=== PATIENT | male | born 1930 | race Caucasian/White ===

== ENCOUNTER 2017-07-07 18:37 | Observation (INO) ==
[~2017-07-07 18:37] MED LIST: Piperacillin/Tazobactam 3.375 GM in D5% in Water (Mini-Bag+) 100 ML IVPB ONE
[2017-07-07] MEDS ORDERED: 0.9 % Sodium Chloride 500 ML IVC ONE (18:45)
--- NOTE | 2017-07-07 18:50 | Emergency Department Note ---
Disposition Clinical Impression: Pneumonia Qualifiers: Pneumonia type: aspiration pneumonia Aspiration pneumonia type: unspecified Laterality: right Lung location: lower lobe of lung Qualified Code(s): J69.0 - Pneumonitis due to inhalation of food and vomit Sinusitis Qualifiers: Sinusitis location: unspecified location Chronicity: unspecified Qualified Code (s): J32.9 - Chronic sinusitis, unspecified Disposition: Admitted As Inpatient Condition: Good Referrals: NONE,PCP [Non-Partnered Physician] - Forms: ED Satisfaction Letter Time of Disposition: 20:24 Fever HPI - General Chief Complaint: ED Fever Stated Complaint: altered mental status - History of Present Illness HPI Narrative: Patient presents to the emergency department for evaluation of fever and generalized weakness. Patient's spouse state that over the past 48 hours the patient has had increasing generalized weakness with subjective fever. He has had no specific complaints other than he has become more weak. He denies headache visual changes confusion or speech changes. He is alert and oriented 3 on my exam. He denies chest pain or dyspnea but does admit to cough. Denies abdominal pain nausea vomiting or diarrhea. He does report a decreased appetite. Denies change in urination. Denies neck or back pain. No recent antibiotic use or known sick contacts. - Related Data Home Medications Medication Instructions Recorded Confirmed Losartan/HCTZ [Hyzaar 50-12.5 1 each PO DAILY 07/07/17 07/07/17 Tablet] Nitroglycerin [Nitrostat] 0.4 mg SL PRN PRN 07/07/17 07/07/17 Simvastatin [Zocor] 40 mg PO HS 07/07/17 07/07/17 Warfarin [Coumadin] 5 mg PO 1800 07/07/17 07/07/17 amLODIPine [Norvasc] 5 mg PO HS 07/07/17 07/07/17 Allergies Allergy/AdvReac Type Severity Reaction Status Date / Time No Known Allergies Allergy Verified 12/16/15 14:36 Constitutional: Reports: fever, weakness Eyes: Denies: eye pain, eye discharge, vision change ENT ED: Denies: ear pain, dysphagia Cardiovascular: Denies: chest pain, palpitations Respiratory: Reports: cough, sputum production (White to yellow). Denies: dyspnea, wheezes, hemoptysis Gastrointestinal: Denies: abdominal pain, vomiting, diarrhea, melena, hematochezia Genitourinary: Denies: urgency, dysuria, frequency Musculoskeletal: Denies: back pain, neck pain, joint swelling Integumentary: Denies: rash Neurological: Denies: headache, weakness, numbness, paresthesias, confusion Hematological/Lymphatic: Denies: lymphadenopathy Allergic/Immunologic: Denies: facial swelling, itchy eyes Fever PMH - Past Medical History Medical history: Reports: hypertension Surgical history: Reports: non-contributory Psychiatric history: Reports: no psych history - Social History Smoking Status: Former smoker Alcohol use: Reports: none Drug use: Reports: none Physical Exam - General Limitations: no limitations General appearance: alert, in no apparent distress (Patient resting comfortably cooperative and interactive and quite pleasant) - Head Head exam: atraumatic, normocephalic, normal inspection - Eye Eye exam: Present: normal appearance, PERRL, EOMI - ENT ENT exam: mucous membranes dry, TM's normal bilaterally - Neck Neck exam: Present: normal inspection, full ROM. Absent: meningismus - Respiratory Respiratory exam: Present: other (Rhonchi bibasilar). Absent: respiratory distress, accessory muscle use, prolonged expiratory phase - Cardiovascular Cardiovascular exam: Present: regular rate, normal rhythm, normal heart sounds - Abdominal Exam Abdominal exam: Present: soft, Non-Tender, normal bowel sounds. Absent: tenderness, distention, guarding, rebound, rigidity - Extremities Exam Extremities exam: Present: normal inspection, full ROM. Absent: tenderness, pedal edema, joint swelling, calf tenderness - Expanded Lower Extremity Exam Neurovascular/Tendon exam: Present: normal capillary refill. Absent: pulse deficit - Back Exam Back exam: Absent: tenderness, CVA tenderness (R), CVA tenderness (L) - Neurological Exam Neurological exam: Present: alert, oriented X3, CN II-XII intact - Psychiatric Psychiatric exam: Present: normal affect, normal mood - Skin Skin exam: Present: warm, dry, intact, normal color Course Vital Signs Temperature 101.9 F H 07/07/17 18:39 Pulse Rate 89 07/07/17 18:39 Respiratory Rate 18 07/07/17 18:39 Blood Pressure 165/85 07/07/17 18:39 O2 Sat by Pulse Oximetry 95 07/07/17 18:39 Temperature 101.9 F H 07/07/17 18:44 Pulse Rate 76 07/07/17 19:57 Respiratory Rate 18 07/07/17 19:57 Blood Pressure 126/92 07/07/17 19:57 O2 Sat by Pulse Oximetry 96 07/07/17 19:57 Oxygen Delivery Oxygen Delivery Nasal Cannula Fever - MDM Narrative Medical decision making narrative: 2020: Discuss the case with Dr. Lema, patient will be admitted to this facility for ongoing evaluation and treatment. Of note clinically there is no evidence of meningitis, encephalitis or mastoiditis - Lab Data Lab results reviewed: Yes I reviewed the patient's lab results. Result diagrams: 07/07/17 19:01 07/07/17 19:01 Lab Results 07/07/17 07/07/17 07/07/17 Range/Units 19:01 19:01 19:01 WBC 9.3 (4.3-11.1) K/mcL RBC 4.08 L (4.19-5.50) M/mcL Hgb 11.4 L (12.9-16.9) g/dL Hct 34.1 L (37.5-50.1) % MCV 83.6 (83.0-100.0) fL MCH 27.9 L (28.0-33.3) pg MCHC 33.4 (31.6-35.5) g/dL RDW 14.6 H (11.5-14.5) % Plt Count 163 (140-400) K/mcL MPV 8.7 L (9.4-12.4) fL Immature Gran % 0.4 (0-4) % Seg Neutrophils % 83.7 % Lymphocytes % 7.8 % Monocytes % 5.3 % Eosinophils % 2.7 % Basophils % 0.1 % Neutrophils # 7.8 (1.6-8.9) K/mcL Lymphocytes # 0.7 (0.6-4.6) K/mcL Monocytes # 0.5 (0.0-1.3) K/mcL Eosinophils # 0.3 (0.0-0.6) K/mcL Basophils # 0.0 (0.0-0.2) K/mcL PT 20.6 H (9.4-12.1) Seconds INR 1.9 APTT 28.8 (26.0-36.0) Seconds VBG Lactic Acid (0.5-2.2) mmol/L Sodium (136-145) mEq/L Potassium (3.5-4.5) mEq/L Chloride (98-109) mEq/L Carbon Dioxide (19-29) mEq/L BUN (8-26) mg/dL Creatinine (0.72-1.25) mg/dL Est GFR ( Amer) (> 60) Est GFR (Non-Af Amer) (> 60) BUN/Creatinine Ratio (6-26) Glucose (70-99) mg/dL Calculated Osmolality (280-300) Calcium (8.6-10.8) mg/dL Total Bilirubin 0.9 (0.2-1.2) mg/dL Direct Bilirubin 0.5 (0.0-0.5) mg/dL Indirect Bilirubin 0.4 (0.0-1.2) mg/dL AST 60 H (5-34) Units/L ALT 36 (0-55) Units/L Alkaline Phosphatase 72 (38-126) Units/L Troponin I (0-0.03) ng/mL Serum Total Protein 6.3 (6.0-8.3) g/dL Albumin 2.9 L (3.5-5.0) g/dL Globulin 3.4 (2.4-3.5) g/dL Albumin/Globulin Ratio 0.9 L (1.1-2.2) Lipase 76 (8-78) Units/L 07/07/17 07/07/17 07/07/17 Range/Units 19:01 19:01 19:01 WBC (4.3-11.1) K/mcL RBC (4.19-5.50) M/mcL Hgb (12.9-16.9) g/dL Hct (37.5-50.1) % MCV (83.0-100.0) fL MCH (28.0-33.3) pg MCHC (31.6-35.5) g/dL RDW (11.5-14.5) % Plt Count (140-400) K/mcL MPV (9.4-12.4) fL Immature Gran % (0-4) % Seg Neutrophils % % Lymphocytes % % Monocytes % % Eosinophils % % Basophils % % Neutrophils # (1.6-8.9) K/mcL Lymphocytes # (0.6-4.6) K/mcL Monocytes # (0.0-1.3) K/mcL Eosinophils # (0.0-0.6) K/mcL Basophils # (0.0-0.2) K/mcL PT (9.4-12.1) Seconds INR APTT (26.0-36.0) Seconds VBG Lactic Acid 1.0 (0.5-2.2) mmol/L Sodium 135 L (136-145) mEq/L Potassium 3.8 (3.5-4.5) mEq/L Chloride 101 (98-109) mEq/L Carbon Dioxide 23 (19-29) mEq/L BUN 16 (8-26) mg/dL Creatinine 0.85 (0.72-1.25) mg/dL Est GFR ( Amer) > 60 (> 60) Est GFR (Non-Af Amer) > 60 (> 60) BUN/Creatinine Ratio 19 (6-26) Glucose 109 H (70-99) mg/dL Calculated Osmolality 282 (280-300) Calcium 8.1 L (8.6-10.8) mg/dL Total Bilirubin (0.2-1.2) mg/dL Direct Bilirubin (0.0-0.5) mg/dL Indirect Bilirubin (0.0-1.2) mg/dL AST (5-34) Units/L ALT (0-55) Units/L Alkaline Phosphatase (38-126) Units/L Troponin I 0.03 (0-0.03) ng/mL Serum Total Protein (6.0-8.3) g/dL Albumin (3.5-5.0) g/dL Globulin (2.4-3.5) g/dL Albumin/Globulin Ratio (1.1-2.2) Lipase (8-78) Units/L ITS Impressions Chest X-Ray 07/07/17 18:46 IMPRESSION: Possible right lower lobe pneumonia D/ / iDo Conway MD / Dio Conway MD Interpreting Provider: Dio Conway MD Head CT 07/07/17 18:46 IMPRESSION: No acute intracranial abnormality. Evidence of bilateral otomastoiditis, new when compared to the previous exam. Paranasal sinus disease, increased when compared to previous exam. D/ / Jared Vigil MD / Jared Vigil MD Interpreting Provider: Jared Vigil MD - Radiology Data Radiology results reviewed: Yes I reviewed the patient's radiology results. - EKG Data EKG attestation: Yes I reviewed and interpreted this EKG. EKG shows normal: sinus rhythm (Normal sinus rhythm at a rate of 89. Intraventricular conduction delay. Nonspecific changes without evidence of acute ST segment or T-wave change.)
[2017-07-07] MEDS ORDERED: Piperacillin/Tazobactam 3.375 GM in D5% in Water (Mini-Bag+) 100 ML IVPB ONE (18:52)
[2017-07-07 19:09] LABS: Basophils % 0.1 %; Eosinophils # 0.3 K/mcL (0.0-0.6); Eosinophils % 2.7 %; Hematocrit 34.1 % (37.5-50.1); Hemoglobin 11.4 g/dL (12.9-16.9); Immature Granulocytes % 0.4 % (0-4); Lymphocytes # 0.7 K/mcL (0.6-4.6); Lymphocytes % 7.8 %; Mean Corpuscular HGB Conc 33.4 g/dL (31.6-35.5); Mean Corpuscular Hemoglobin 27.9 pg (28.0-33.3); Mean Corpuscular Volume 83.6 fL (83.0-100.0); Mean Platelet Volume 8.7 fL (9.4-12.4); Monocytes # 0.5 K/mcL (0.0-1.3); Monocytes % 5.3 %; Neutrophils # 7.8 K/mcL (1.6-8.9); Platelet Count 163 K/mcL (140-400); Red Blood Count 4.08 M/mcL (4.19-5.50); Red Cell Distribution Width 14.6 % (11.5-14.5); Segmented Neutrophils % 83.7 %
[2017-07-07 19:15] LABS: INR 1.9; Prothrombin Time 20.6 Seconds (9.4-12.1)
[2017-07-07 19:18] LABS: Activated Partial Thrombo Time 28.8 Seconds (26.0-36.0)
[2017-07-07 19:25] LABS: BUN/Creatinine Ratio 19 (6-26); Blood Urea Nitrogen 16 mg/dL (8-26); Calcium 8.1 mg/dL (8.6-10.8); Carbon Dioxide 23 mEq/L (19-29); Chloride 101 mEq/L (98-109); Glucose 109 mg/dL (70-99); Osmolality,Calculated 282 (280-300); Potassium 3.8 mEq/L (3.5-4.5); Sodium 135 mEq/L (136-145); eGFR For African Americans > 60 (> 60); eGFR For Non-African Americans > 60 (> 60)
[2017-07-07 19:28] LABS: Albumin 2.9 g/dL (3.5-5.0); Albumin/Globulin Ratio 0.9 (1.1-2.2); Bilirubin,Direct 0.5 mg/dL (0.0-0.5); Bilirubin,Indirect 0.4 mg/dL (0.0-1.2); Bilirubin,Total 0.9 mg/dL (0.2-1.2); Globulin 3.4 g/dL (2.4-3.5); Total Protein 6.3 g/dL (6.0-8.3)
[2017-07-07] MEDS ORDERED: Naloxone 0.4 MG/ML INJ IVP PRN (20:25)
[2017-07-07 20:40] LABS: Bilirubin,Urine Negative (Negative); Blood,Urine Moderate (Negative); Clarity,Urine Clear (Clear); Color,Urine Yellow (Yellow); Glucose,Urine (UA) Normal (Normal); Ketones,Urine Trace mg/dL (Negative); Leukocyte Esterase,Urine Negative (Negative); Nitrite,Urine Negative (Negative); Protein,Urine 100 mg/dL (Neg-Trace); Urobilinogen,Urine Normal (Normal)
[2017-07-07 21:04] LABS: Granular Casts,Urine Few per lpf (None Seen); Mucus,Urine Moderate (Few); RBC,Urine 30-50 per hpf (0-3); Squamous Epithelial Cell,Urine Few per lpf (None-Few); WBC,Urine 0-3 per hpf (0-3)
[2017-07-08] MEDS: Piperacillin/Tazobactam 3.375 GM in D5% in Water (Mini-Bag+) 100 ML IVPB SCH ×3 (02:24→18:21)
[2017-07-08] MEDS: amLODIPine 5 MG TABLET PO SCH ×2 (03:35→20:01)
[2017-07-08 04:39] LABS: Hematocrit 32.9 % (37.5-50.1); Hemoglobin 10.9 g/dL (12.9-16.9); Immature Granulocytes % 0.4 % (0-4); Lymphocytes % 8.1 %; Mean Corpuscular HGB Conc 33.1 g/dL (31.6-35.5); Mean Corpuscular Hemoglobin 27.7 pg (28.0-33.3); Mean Corpuscular Volume 83.7 fL (83.0-100.0); Mean Platelet Volume 9.3 fL (9.4-12.4); Monocytes % 5.2 %; Platelet Count 148 K/mcL (140-400); Red Blood Count 3.93 M/mcL (4.19-5.50); Red Cell Distribution Width 14.6 % (11.5-14.5); Segmented Neutrophils % 76.7 %
[2017-07-08 04:40] LABS: Basophils % 0.2 %; Eosinophils # 0.8 K/mcL (0.0-0.6); Eosinophils % 9.4 %; Lymphocytes # 0.7 K/mcL (0.6-4.6); Monocytes # 0.4 K/mcL (0.0-1.3); Neutrophils # 6.5 K/mcL (1.6-8.9)
[2017-07-08 04:54] LABS: BUN/Creatinine Ratio 19 (6-26); Blood Urea Nitrogen 17 mg/dL (8-26); Calcium 8.3 mg/dL (8.6-10.8); Carbon Dioxide 24 mEq/L (19-29); Chloride 102 mEq/L (98-109); Glucose 116 mg/dL (70-99); Osmolality,Calculated 287 (280-300); Potassium 3.6 mEq/L (3.5-4.5); Sodium 137 mEq/L (136-145); eGFR For African Americans > 60 (> 60); eGFR For Non-African Americans > 60 (> 60)
[2017-07-08] MEDS: Losartan/HCTZ 50-12.5 TABLET PO SCH (08:11)
[2017-07-08 13:44] LABS: % Iron Saturation 8 % (20-55); Iron 18 mcg/dL (65-175); Transferrin 166 mg/dL (174-364)
[2017-07-08 14:05] LABS: Ferritin 1408 ng/ml (22-275)
[2017-07-08 14:18] LABS: Folate 15.9 ng/mL (7.0-31.4)
--- NOTE | 2017-07-08 14:53 | Internal Med History&Physical ---
Date of Encounter: 07/08/17 Time of Encounter: 08:50 Assessment and Plan (1) Pneumonia Current visit: Yes Status: Acute Qualifiers: Pneumonia type: due to unspecified organism Laterality: right Lung location: lower lobe of lung Qualified Code(s): J18.1 - Lobar pneumonia, unspecified organism (2) Hypertension Current visit: Yes Status: Chronic Continue Norvasc and Hyzaar. Qualifiers: Hypertension type: essential hypertension Qualified Code(s): I10 - Essential (primary) hypertension (3) Anemia Current visit: Yes Status: Acute We will order anemia testing. Qualifiers: Anemia type: unspecified type Qualified Code(s): D64.9 - Anemia, unspecified (4) Hematuria Current visit: Yes Status: Acute Microscopic. Will do chest, abdomen, and pelvic CT. Qualifiers: Hematuria type: unspecified type Qualified Code(s): R31.9 - Hematuria, unspecified Internal Medicine - H&P: HPI Chief complaint: Dyspnea and fever Admitted From: Home Plans for Post Hospital Care: Home History of present illness: Mr. Puckett is a 87 year old male who came to the hospital stating he had increasing dyspnea and fever over the preceding 2-3 days. He had slight cough with minimal productivity. He was evaluated in emergency room and felt to have possible right lower lobe pneumonia. He was admitted to [facility] floor for ongoing care needs. He states he feels slightly improved at the present time. His respiratory history is significant for having smoked from age [age]. He does not have known chronic lung disease and does not use home oxygen. He has not been tested for sleep apnea. Past Med Surg Social Fam HX - Past Medical History Medical history: coronary artery disease, hyperlipidemia, hypertension Psychiatric history: no psych history - Past Surgical History Surgical History: non-contributory - Social History Smoking Status: Former smoker Smokeless Tobacco Status: No Alcohol use: none Drug use: none Internal Medicine - H&P: Meds Losartan/HCTZ [Hyzaar 50-12.5 Tablet] 1 each PO DAILY 07/07/17 [History] Nitroglycerin [Nitrostat] 0.4 mg SL PRN PRN 07/07/17 [History] Simvastatin [Zocor] 40 mg PO HS 07/07/17 [History] Warfarin [Coumadin] 5 mg PO 1800 07/07/17 [History] amLODIPine [Norvasc] 5 mg PO HS 07/07/17 [History] 3 Allergy/AdvReac Type Severity Reaction Status Date / Time No Known Allergies Allergy Verified 07/07/17 22:50 All Systems PM: A 10-system review of systems was performed and is negative for pertinent findings except as documented above in the HPI. Review of systems: Gen.: His weight has been stable in the past few months Cardiovascular: He has history of hypertension and known ASHD status post [place] 2006. He had a stent placed post [place]. His most recent stress test was July 2016 which showed fixed perfusion defect of the inferior wall that worsens during stress most consistent with artifact. There was no EKG evidence of ischemia. The estimated EF was 57%. Echocardiogram 08/04/2016 showed LVEF 65% with increased thickness of the interventricular septum and posterior wall at 1.30 cm each. The E/A ratio was 0.7. No significant valvular adenopathy was seen. He has not had DVT or pulmonary embolus and does not get angina or anginal equivalents on exertion. Respiratory: As per history of present illness GI: Denies disorders of his liver gallbladder or exocrine pancreas : No history of hematuria dysuria or kidney stones Neurologic: No history of strokes or seizures Endocrine: He denies diabetes thyroid disease or hyperlipidemia Hematology/oncology: He had prostate CA approximately 2009 and had XRT. He denies other internal malignancies or blood disorders Psychiatric: He denies anxiety depression or other mental health issues Musk skeletal: He has minimal DJD but no known gout or osteoporosis. - Constitutional Vitals: Temp Pulse Resp BP Pulse Ox 98.2 F 73 18 159/75 96 07/08/17 11:10 07/08/17 11:10 07/08/17 11:10 07/08/17 11:10 07/08/17 11:10 Exam: Gen.: He is a well-developed well-nourished male who appears in no acute distress HEENT: Head is atraumatic and normocephalic. Eyes: EOMI. There is no scleral icterus. Mouth: Mucosa is moist. Neck: Supple and nontender. There is no thyromegaly or adenopathy noted. Heart: Regular without murmurs gallops or ectopics Lungs: No wheezes or crackles are heard. Abdomen: Soft and nontender. No masses or guarding noted. Extremities: There is no cyanosis edema or clubbing noted. Dorsalis pedis and posterior tibial pulses are trace palpable bilaterally. His feet are warm to touch. Neurologic: Mental status: He is talkative and a good historian. Cranial nerves : Smile is symmetric. Forehead wrinkles bilaterally. Tongue protrudes midline. EOMI. Motor: There is no pronator drift. He is hard of hearing. Cerebellar: Finger to nose is intact bilaterally. Skin: Warm and dry Internal Med - H&P Results - Labs CBC & Chem 7: 07/08/17 04:25 07/08/17 04:25 Labs: Short CBC 07/08/17 Range/Units 04:25 WBC 8.4 (4.3-11.1) K/mcL Hgb 10.9 L (12.9-16.9) g/dL Hct 32.9 L (37.5-50.1) % Plt Count 148 (140-400) K/mcL Neutrophils # 6.5 (1.6-8.9) K/mcL BMP 07/08/17 04:25 Sodium 137 Potassium 3.6 Chloride 102 Carbon Dioxide 24 BUN 17 Creatinine 0.90 Glucose 116 H Calcium 8.3 L - Impressions ITS Impressions Abdomen/Pelvis CT 07/08/17 09:09 IMPRESSION: 1. Peribronchial thickening and airspace opacity in the left lower lobe could be due to bronchiolitis with atelectasis and/or pneumonia. 2. 10 mm nodule in the left upper lobe is stable since 12/16/2015 (19 months). See follow-up guidelines below. 3. No acute abnormality within the abdomen and pelvis. 4. Small left inguinal hernia containing a short segment of colon without evidence of obstruction. 5. Probable fatty infiltration of the liver. 6. 3.4 cm infrarenal abdominal aortic aneurysm. See follow-up guidelines below. RECOMMENDATIONS: Fleischner Society guidelines for follow-up and management of incidentally detected pulmonary nodules: Single Solid Nodule: Nodule size greater than 8 mm In a low-risk patient, consider CT, PET/CT, or tissue sampling at 3 months. In a high-risk patient, consider CT, PET/CT, or tissue sampling at 3 months. - Low risk patients include individuals with minimal or absent history of smoking and other known risk factors. - High risk patients include individuals with a history or smoking or known risk factors. Radiology 2017 http://pubs.rsna.org/doi/full/10.1148/radiol.7388073696 Managing Abdominal Aortic Aneurysms 2.6-2.9 cm: Every 5 years* 3.0-3.4 cm: Every 3 years. 3.5-3.9 cm: Every 1 year. 4.0-4.4 cm: Every 1 year. Recommend vascular consultation. 4.5-5.4 cm: Every 6 months. Recommend vascular consultation. Greater than or equal to 5.5 cm: Referral to vascular surgeon. *For abdominal aortas with maximum diameter of 2.6-2.9 cm meeting criteria for AAA (>50% of proximal normal segment). Reference: J Vasc Surg. 2009 Jul;50(4 Suppl):S2-49 D/ / Marcio Espinosa MD / Marcio Espinosa MD Interpreting Provider: Marcio Espinosa MD Chest CT 07/08/17 09:09 IMPRESSION: 1. Peribronchial thickening and airspace opacity in the left lower lobe could be due to bronchiolitis with atelectasis and/or pneumonia. 2. 10 mm nodule in the left upper lobe is stable since 12/16/2015 (19 months). See follow-up guidelines below. 3. No acute abnormality within the abdomen and pelvis. 4. Small left inguinal hernia containing a short segment of colon without evidence of obstruction. 5. Probable fatty infiltration of the liver. 6. 3.4 cm infrarenal abdominal aortic aneurysm. See follow-up guidelines below. RECOMMENDATIONS: Fleischner Society guidelines for follow-up and management of incidentally detected pulmonary nodules: Single Solid Nodule: Nodule size greater than 8 mm In a low-risk patient, consider CT, PET/CT, or tissue sampling at 3 months. In a high-risk patient, consider CT, PET/CT, or tissue sampling at 3 months. - Low risk patients include individuals with minimal or absent history of smoking and other known risk factors. - High risk patients include individuals with a history or smoking or known risk factors. Radiology 2017 http://pubs.rsna.org/doi/full/10.1148/radiol.5219196020 Managing Abdominal Aortic Aneurysms 2.6-2.9 cm: Every 5 years* 3.0-3.4 cm: Every 3 years. 3.5-3.9 cm: Every 1 year. 4.0-4.4 cm: Every 1 year. Recommend vascular consultation. 4.5-5.4 cm: Every 6 months. Recommend vascular consultation. Greater than or equal to 5.5 cm: Referral to vascular surgeon. *For abdominal aortas with maximum diameter of 2.6-2.9 cm meeting criteria for AAA (>50% of proximal normal segment). Reference: J Vasc Surg. 2008;50(4 Suppl):S2-49 D/ / Marcio Espinosa MD / Marcio Espinosa MD Interpreting Provider: Marcio Espinosa MD
[2017-07-08] MEDS ORDERED: *HR* Warfarin 5 MG TABLET PO SCH (18:00)
[2017-07-09] MEDS: Piperacillin/Tazobactam 3.375 GM in D5% in Water (Mini-Bag+) 100 ML IVPB SCH (04:10)
[2017-07-09 06:37] LABS: INR 1.7; Prothrombin Time 18.3 Seconds (9.4-12.1)
[2017-07-09 07:04] VITALS: BP 130/70
[2017-07-09] MEDS: Losartan/HCTZ 50-12.5 TABLET PO SCH (08:42)
--- NOTE | 2017-07-09 09:18 | Discharge Summary ---
Date of Encounter: 07/09/17 Time of Encounter: 09:05 - Discharge Diagnosis (1) Pneumonia Priority: Primary Status: Acute Qualifiers: Pneumonia type: due to unspecified organism Laterality: right Lung location: lower lobe of lung Qualified Code(s): J18.1 - Lobar pneumonia, unspecified organism (2) Hypertension Priority: Secondary Status: Chronic Qualifiers: Hypertension type: essential hypertension Qualified Code(s): I10 - Essential (primary) hypertension (3) Anemia Priority: Secondary Status: Acute Qualifiers: Anemia type: unspecified type Qualified Code(s): D64.9 - Anemia, unspecified (4) Hematuria Priority: Secondary Status: Acute Qualifiers: Hematuria type: unspecified type Qualified Code(s): R31.9 - Hematuria, unspecified - Discharge Medications Prescriptions: Amoxicillin/Clavulanate [Augmentin] 875 mg PO BIDWM #10 tablet Lactobacillus [Culturelle] 1 each PO BID #10 cap.sprink Home Medications: Losartan/HCTZ [Hyzaar 50-12.5 Tablet] 1 each PO DAILY 07/07/17 [History] Nitroglycerin [Nitrostat] 0.4 mg SL PRN PRN 07/07/17 [History] Simvastatin [Zocor] 40 mg PO HS 07/07/17 [History] Warfarin [Coumadin] 5 mg PO 1800 07/07/17 [History] amLODIPine [Norvasc] 5 mg PO HS 07/07/17 [History] Amoxicillin/Clavulanate [Augmentin] 875 mg PO BIDWM #10 tablet 07/09/17 [Rx] Lactobacillus [Culturelle] 1 each PO BID #10 cap.sprink 07/09/17 [Rx] Allergies/Adverse Reactions: 3 Allergy/AdvReac Type Severity Reaction Status Date / Time No Known Allergies Allergy Verified 07/07/17 22:50 Procedures/tests Complete & Pending: Procedures Performed prior 72 hours Category Date Time Status CT abd pelvis wo no iv no oral [CT] Routine Cat Scan 07/08/17 09:[address] chest wo con [CT] Routine Cat Scan 07/08/17 09:09 Completed Date of admission: 07/07/17 20:40 Primary care physician: Valdemar Paez DO Consults: 07/07/17 23:10 Consult to Contact Person [CONS] Routine Reason for SW Consult: eval. for home health needs; is primary caregiver - Patient Status Disposition: Home, Self-Care Condition: Good Overall status at discharge: patient is progressing back to baseline - Discharge Instructions Follow Up With: Valdemar Paez DO [Primary Care Provider] - 1 week - Diet and Activity Activity: resume usual activities as tolerated Diet: advance to your usual diet Hospital course: Mr. Puckett is a 87 year old male who came to the hospital stating he had increasing dyspnea and fever over the preceding 2-3 days. He had slight cough with minimal productivity. He was evaluated in emergency room and felt to have possible right lower lobe pneumonia. He was admitted to [facility] for ongoing care needs. Initial orders were written by the emergency room physician. I saw him on July 08 and performed a history and physical. He was started on IV Zosyn through emergency room. CT scan of chest abdomen pelvis was done to further evaluate pneumonia and hematuria. The scan showed findings consistent with left lower lobe pneumonia. No significant pathology was visualized to explain the hematuria. He had good clinical response with recheck CBC showing normal WBC and improvement in the left shift on July 08. On July 09 he felt stable for discharge home. He will continue with antibiotic and probiotic for 5 additional days after discharge. His PCP can follow up on the hematuria. Anemia testing showed iron 18, transferrin saturation 8%, transferrin 166, ferritin 1408, B12 287 and folate 15.9. His PCP Dr. Paez can monitor his hemoglobin and decide if a trial of ferrous sulfate is needed. He will follow with Dr. Paez within 1 week. - Time Spent with Patient Total time spent providing and/or coordinating discharge services: - Constitutional Vitals: Temp Pulse Resp BP Pulse Ox 98.9 F 67 18 130/70 93 07/09/17 07:00 07/09/17 07:00 07/09/17 07:00 07/09/17 07:00 07/09/17 08:20
--- NOTE | 2017-07-10 21:30 | Electrocardiograph Report ---
[address] [address] Test Date: 2017-07-07 Pat Name: Ronaldo Puckett Department: [id number] Room: [facility] Gender: M Manager Stars: Julito : [id number] Requested By: Aldair Andrew Order Number: [id number] Reading MD: Bart Espinal MD Measurements Intervals Sullivan Rate: 89 P: 43 DC: 162 QRS: 54 QRSD: 113 T: 62 QT: 356 QTc: 402 Interpretive Statements SINUS RHYTHM BASELINE ARTIFACT Electronically Signed On 07-10-2017 21:29:00 EDT by Bart Espinal MD
== END 2017-07-09 09:51 | disposition home or self-care (01) ==
LOC: EMEROOPIK 18:37 → INPPIK 18:37
PROVIDERS: ADMIT Internal Medicine; ATTEND Internal Medicine

== ENCOUNTER 2020-07-12 01:41 | Observation (INO) ==
[2020-07-12] MEDS ORDERED: Ipratropium/Albuterol Neb 3 ML IH ONE ×3 (02:04→06:50)
[2020-07-12] MEDS ORDERED: 0.9 % Sodium Chloride 1,000 ML IVC ONE (02:50)
[2020-07-12] MEDS ORDERED: Azithromycin 500 MG in 0.9 % Sodium Chloride 250 ML IVPB ONE (02:50)
[2020-07-12 03:31] LABS: Basophils # 0.1 K/mcL (0.0-0.2); Basophils % 0.5 %; Eosinophils # 0.2 K/mcL (0.0-0.6); Hematocrit 42.4 % (37.5-50.1); Hemoglobin 14.1 g/dL (12.9-16.9); Immature Granulocytes % 0.2 % (0-4); Lymphocytes # 3.7 K/mcL (0.6-4.6); Lymphocytes % 38.3 %; Mean Corpuscular HGB Conc 33.3 g/dL (31.6-35.5); Mean Corpuscular Hemoglobin 28.6 pg (28.0-33.3); Mean Platelet Volume 9.1 fL (9.4-12.4); Monocytes # 0.6 K/mcL (0.0-1.3); Monocytes % 5.8 %; Neutrophils # 5.1 K/mcL (1.6-8.9); Platelet Count 239 K/mcL (140-400); Red Blood Count 4.93 M/mcL (4.19-5.50); Red Cell Distribution Width 14.2 % (11.5-14.5); Segmented Neutrophils % 53.2 %; White Blood Count 9.6 K/mcL (4.3-11.1)
[2020-07-12 04:51] LABS: BUN/Creatinine Ratio 13 (6-26); Blood Urea Nitrogen 10 mg/dL (8-23); Calcium 9.3 mg/dL (8.6-10.3); Carbon Dioxide 26 mEq/L (23-29); Chloride 100 mEq/L (98-107); Glucose 124 mg/dL (70-105); Osmolality,Calculated 288 (280-300); Potassium 3.7 mEq/L (3.5-5.1); Sodium 139 mEq/L (136-145); eGFR For African Americans > 60 (> 60); eGFR For Non-African Americans > 60 (> 60)
[2020-07-12 06:16] LABS: Adenovirus Not Detected (Not Detect); Bordetella Pertussis Not Detected (Not Detect); Chlamydophila pneumoniae Not Detected (Not Detect); Coronavirus 229E Not Detected (Not Detect); Coronavirus HKU1 Not Detected (Not Detect); Coronavirus NL63 Not Detected (Not Detect); Coronavirus OC43 Not Detected (Not Detect); Human Metapneumovirus Not Detected (Not Detect); Human Rhinovirus/Enterovirus Not Detected (Not Detect); Influenza A Subtype 2009 H1 Not Detected (Not Detect); Influenza B Not Detected (Not Detect); Mycoplasma pneumoniae Not Detected (Not Detect); Parainfluenza Virus 1 Not Detected (Not Detect); Parainfluenza Virus 2 Not Detected (Not Detect); Parainfluenza Virus 3 Not Detected (Not Detect); Parainfluenza Virus 4 Not Detected (Not Detect); Respiratory Syncytial Virus Not Detected (Not Detect); SARS-CoV-2 Not Detected (Not Detect)
[2020-07-12] MEDS ORDERED: Naloxone 0.4 MG/ML INJ IVP PRN (06:50)
[2020-07-12] MEDS ORDERED: Nitroglycerin 0.4 MG TAB.SUBL SL PRN (06:50)
[2020-07-12] MEDS: Ipratropium/Albuterol Neb 3 ML IH SCH ×4 (07:36→20:27)
[2020-07-12] MEDS: 0.9 % Sodium Chloride 1,000 ML IVC SCH ×2 (07:36→17:28)
[2020-07-12] MEDS: Losartan/HCTZ 50-12.5 TABLET PO SCH (07:37)
[2020-07-12] MEDS: MethylPREDNISolone 40 MG/ML VIAL IVP SCH ×2 (08:51→17:28)
[2020-07-12] MEDS: *HR* LORazepam 0.5 MG TABLET PO PRN ×2 (11:36→21:34)
[2020-07-12] MEDS: Budesonide/Formoterol 160/4.5 1 PUFF INH IH SCH ×2 (12:46→20:29)
[2020-07-12] MEDS ORDERED: amLODIPine 5 MG TABLET PO SCH (21:00)
[2020-07-13] MEDS: MethylPREDNISolone 40 MG/ML VIAL IVP SCH ×2 (00:20→08:46)
[2020-07-13] MEDS: Ipratropium/Albuterol Neb 3 ML IH SCH ×4 (00:48→07:31)
[2020-07-13] MEDS ORDERED: cefTRIAXone 1,000 MG in 0.9 % Sodium Chloride Mini Bag 100 ML IVPB SCH ×2 (04:00→09:00)
[2020-07-13] MEDS ORDERED: Azithromycin 500 MG in 0.9 % Sodium Chloride 250 ML IVPB SCH (05:00)
[2020-07-13 07:38] VITALS: BP 168/84
[2020-07-13] MEDS: Budesonide/Formoterol 160/4.5 1 PUFF INH IH SCH (07:41)
[2020-07-13] MEDS: Losartan/HCTZ 50-12.5 TABLET PO SCH (08:46)
[2020-07-13 08:47] LABS: Hematocrit 40.6 % (37.5-50.1); Hemoglobin 13.5 g/dL (12.9-16.9); Mean Corpuscular HGB Conc 33.3 g/dL (31.6-35.5); Mean Corpuscular Hemoglobin 28.5 pg (28.0-33.3); Mean Corpuscular Volume 85.7 fL (83.0-100.0); Mean Platelet Volume 8.9 fL (9.4-12.4); Platelet Count 249 K/mcL (140-400); Red Blood Count 4.74 M/mcL (4.19-5.50); Red Cell Distribution Width 14.3 % (11.5-14.5); White Blood Count 16.2 K/mcL (4.3-11.1)
[2020-07-13 09:03] LABS: BUN/Creatinine Ratio 20 (6-26); Blood Urea Nitrogen 16 mg/dL (8-23); Calcium 8.9 mg/dL (8.6-10.3); Carbon Dioxide 24 mEq/L (23-29); Chloride 104 mEq/L (98-107); Glucose 156 mg/dL (70-105); Osmolality,Calculated 296 (280-300); Potassium 3.5 mEq/L (3.5-5.1); Sodium 141 mEq/L (136-145); eGFR For African Americans > 60 (> 60); eGFR For Non-African Americans > 60 (> 60)
== END 2020-07-13 10:57 | disposition home or self-care (01) ==
LOC: INPPIK 01:41 → EMEROOPIK 01:41 → INPPIK 06:44
PROVIDERS: ADMIT Student in an Organized Health Care Education/Training Program; ATTEND Student in an Organized Health Care Education/Training Program